=== PATIENT | female | born 2000 ===

== ENCOUNTER → 2022-01-07 | Outpatient (CLI) | payer OTHER ==
[~2022-01-07] MED LIST: ASPIRIN E.C. 8181 MG PO; CRANBERRY 100 M1 SGL PO; MELATONIN5 M1 SL; TURMERIC500 MG PO; VITAMINC1000TA PO; [UNRECOGNIZED DRUG - REMARK] PO
[2022-01-07 12:01] VITALS: BP 150/108; PULSE 84; TEMP 98
[2022-01-07 13:10] VITALS: BP 145/98; PULSE 91
== END ==
LOC: COL.RAD 01-01 07:30
DX: E04.2 Nontoxic multinodular goiter (principal)